=== PATIENT | female | born 1960 | race Caucasian/White ===

== ENCOUNTER 2017-02-20 12:32 | Emergency (ER) | payer MEDICAID ==
[~2017-02-20] VITALS: Ht 160 cm; Wt 62.4 kg
[~2017-02-20 12:32] MED LIST: IBUP800T23 PO
[2017-02-20 12:41] VITALS: BP 163/92; PULSE 89; RESP 16; TEMP 98.4; O2SAT 97
[2017-02-20] MEDS ORDERED: SODIUM CHLOR 0.9% 1000 ML INJ 1,000 ML IV ONE (12:59)
[2017-02-20 13:00] VITALS: BP 163/92; PULSE 88; RESP 20; TEMP 98.4; O2SAT 97
[2017-02-20] MEDS ORDERED: SODIUM CHLORIDE 0.9% FLUSH 10 ML FLUSH IVF PRN (13:00)
--- NOTE | 2017-02-20 13:06 | PD ---
HPI . Diarrhea Chief Complaint: Diarrhea Time Seen by Provider: 12:59 Travel History International Travel<30 days: No Contact w/Intl Traveler<30days: No History of Present Illness HPI This patient presents with a chief complaint of diarrhea. Onset was 3 months ago. She reports approximately 5 loose stools per day. She states that she is occasionally incontinent of stool during the nighttime. She reports some associated lower abdominal cramping and nausea. She reports decreased appetite. Despite this, she has only lost a couple of pounds. She has not been running any fever. She states that her sister visited her just prior to the onset of symptoms and that the sister had C. difficile. The patient is concerned that she has the same. She reports that she has not been on antibiotics in over a year. No exacerbating or relieving factors. PFSH Past Medical History Autoimmune Disease: Yes (FIBROMYALGIA) Diminished Hearing: No Tubal Ligation: Yes Past Surgical History Other Surgery: Yes (TUBAL) Social History Alcohol Use: No Tobacco Use: Yes (1 ppd) Substance Use: No Allergies-Medications (Allergen,Severity, Reaction): Coded Allergies: No Known Allergies (Unverified , 10/06/14) Reported Meds & Prescriptions Reported Meds & Active Scripts Active Reported Lortab (Hydrocodone-Acetaminophen) 5-325 Mg Tab 1 Tab PO Q6H PRN Tizanidine (Tizanidine HCl) 4 Mg Tab 4 Mg PO TID Gabapentin 800 Mg Tab 800 Mg PO TID Review of Systems Except as stated in HPI: all other systems reviewed are Neg General / Constitutional: Positive: Weight Loss (only a couple of pounds), No: Fever, Chills Gastrointestinal: Positive: Nausea, Diarrhea, Abdominal Pain, No: Vomiting Genitourinary: Positive: Dysuria Physical Exam Narrative GENERAL: Awake and alert and in no acute distress. SKIN: warm/dry. Good color and turgor. HEAD: Normocephalic. Atraumatic. EYES: Pupils equal and round. No scleral icterus. No injection or drainage. ENT: No nasal bleeding or discharge. Mucous membranes pink and moist. NECK: Trachea midline. Full range of motion without pain.. CARDIOVASCULAR: Regular rate and rhythm. Heart sounds are normal. RESPIRATORY: No accessory muscle use. Clear to auscultation. Breath sounds equal bilaterally. GASTROINTESTINAL: Abdomen soft. Nontender. Bowel sounds present. Nondistended. MUSCULOSKELETAL: No obvious deformities. NEUROLOGICAL: Awake and alert. No obvious cranial nerve deficits. Motor grossly within normal limits. Normal speech. PSYCHIATRIC: Appropriate mood and affect; insight and judgment normal. Data Data Last Documented VS Vital Signs Date Time Temp Pulse Resp B/P (MAP) Pulse Ox O2 Delivery O2 Flow Rate FiO2 02/20/17 13:00 98.4 88 20 163/92 (115) 97 02/20/17 12:41 Room Air Orders Orders Complete Blood Count With Diff (02/20/17 12:59) Comprehensive Metabolic Panel (02/20/17 12:59) Urinalysis - C+S If Indicated (02/20/17 12:59) Iv Access Insert/Monitor (02/20/17 12:59) Sodium Chlor 0.9% 1000 Ml Inj (Ns 1000 M (02/20/17 12:59) Sodium Chloride 0.9% Flush (Ns Flush) (02/20/17 13:00) C Diff Toxin Pcr (02/20/17 12:59) Enteric Path (Stool) (02/20/17 12:59) Labs Laboratory Tests Test 02/20/17 13:50 02/20/17 14:00 Urine Collection Type CLEAN CATCH Urine Color YELLOW Urine Turbidity CLEAR Urine pH 6.0 Urine Specific [place] 1.005 Urine Protein NEG mg/dL Urine Glucose (UA) NEG mg/dL Urine Ketones NEG mg/dL Urine Occult Blood TRACE Urine Nitrite NEG Urine Bilirubin NEG Urine Leukocyte Esterase TRACE Urine RBC 0-3 /hpf Urine WBC 3-5 /hpf Urine Squamous Epithelial Cells 0-5 /hpf Microscopic Urinalysis Comment CULT NOT INDICATED Urine Collection Time 13:50 White Blood Count 12.7 TH/MM3 Red Blood Count 4.82 MIL/MM3 Hemoglobin 14.0 GM/DL Hematocrit 42.3 % Mean Corpuscular Volume 87.9 FL Mean Corpuscular Hemoglobin 29.2 PG Mean Corpuscular Hemoglobin Concent 33.2 % Red Cell Distribution Width 13.6 % Platelet Count 193 TH/MM3 Mean Platelet Volume 11.4 FL Neutrophils (%) (Auto) 68.8 % Lymphocytes (%) (Auto) 25.7 % Monocytes (%) (Auto) 4.2 % Eosinophils (%) (Auto) 1.0 % Basophils (%) (Auto) 0.3 % Neutrophils # (Auto) 8.8 TH/MM3 Lymphocytes # (Auto) 3.3 TH/MM3 Monocytes # (Auto) 0.5 TH/MM3 Eosinophils # (Auto) 0.1 TH/MM3 Basophils # (Auto) 0.0 TH/MM3 CBC Comment DIFF FINAL Differential Comment Blood Urea Nitrogen 7 MG/DL Creatinine 0.84 MG/DL Random Glucose 100 MG/DL Total Protein 7.9 GM/DL Albumin 4.2 GM/DL Calcium Level 9.2 MG/DL Alkaline Phosphatase 85 U/L Aspartate Amino Transf (AST/SGOT) 10 U/L Alanine Aminotransferase (ALT/SGPT) 17 U/L Total Bilirubin 0.8 MG/DL Sodium Level 135 MEQ/L Potassium Level 3.4 MEQ/L Chloride Level 102 MEQ/L Carbon Dioxide Level 24.8 MEQ/L Anion Gap 8 MEQ/L Estimat Glomerular Filtration Rate 71 ML/MIN MDM Medical Decision Making Medical Screen Exam Complete: Yes Emergency Medical Condition: Yes Differential Diagnosis Differential diagnosis of diarrhea includes but is not limited to early enteritis, bacterial enteritis, antibiotic induced diarrhea, irritable bowel syndrome Narrative Course This patient presents with chief complaint of diarrhea 3 months. I will give her a fluid bolus. I have ordered labs including stool for C. difficile and culture for enteric pathogens. CBC & BMP Diagram 02/20/17 14:00 Total Protein 7.9, Albumin 4.2, Calcium Level 9.2, Alkaline Phosphatase 85, Aspartate Amino Transf (AST/SGOT) 10 L, Alanine Aminotransferase (ALT/SGPT) 17, Total Bilirubin 0.8 UA>>trace blood, trace LE, 3-5 WBCs I will treat her with Macrobid for 3 days. I will give her supplemental potassium. She has been here for 2 hours and has not stooled. Stool studies will be canceled. She is unlikely to have a significant pathogen since she has not produced stool for 2 hours. Diagnosis Primary Impression: Diarrhea Qualified Codes: R19.7 - Diarrhea, unspecified Additional Impressions: Urinary tract infection Qualified Codes: N30.00 - Acute cystitis without hematuria Hypokalemia Patient Instructions: Chronic Diarrhea (DC), General Instructions, Hypokalemia (DC), Urinary Tract Infection in Women (DC) Med/Other Pt SpecificInfo: Prescription(s) given Scripts Potassium Chloride ER (Potassium Chloride ER) 20 Meq Tab 20 MEQ PO BID for Electrolyte Replacement for 5 Days, #10 TAB 0 Refills Prov: Eve Reid MD 02/20/17 Nitrofurantoin Monohydrate Macrocrystals (Macrobid) 100 Mg Cap 100 MG PO BID for Infection for 3 Days, #6 CAP 0 Refills Prov: Eve Reid MD 02/20/17 Disposition: 01 DISCHARGE HOME Condition: Stable Eve Reid MD Feb 20, 2017 13:05
[2017-02-20] MEDS ORDERED: TIZA4TAB PO (13:31)
[2017-02-20] MEDS ORDERED: GABA800T PO (13:31)
[2017-02-20] MEDS ORDERED: HYDR-3533 PO (13:31)
[2017-02-20 14:11] LABS: BILIRUBIN, URINE NEG (NEG); GLUCOSE,URINE NEG (NEG); KETONE, URINE NEG (NEG); NITRITE,URINE NEG (NEG); URINE LEUKOCYTE ESTERASE TRACE (NEG)
[2017-02-20 14:13] LABS: BLOOD, URINE TRACE (NEG)
[2017-02-20 14:14] LABS: RBC, URINE 0-3 /hpf (0-3); SQUAMOUS EPITHELIAL CELL URINE 0-5 /hpf (0-5); URINE COLOR YELLOW (YELLW/STRAW)
[2017-02-20 14:18] LABS: AUTOMATED NEUTROPHIL # 8.8 TH/MM3 (1.8-7.7); BASOPHIL % 0.3 % (0.0-2.0); EOSINOPHIL # 0.1 TH/MM3 (0-0.4); HEMATOCRIT 42.3 % (35.0-46.0); LYMPH % 25.7 % (9.0-44.0); LYMPHOCYTE # 3.3 TH/MM3 (1.0-4.8); MEAN CELL VOLUME 87.9 FL (80.0-100.0); MEAN CORPUSCULAR HEMOGLOBIN 29.2 PG (27.0-34.0); MEAN CORPUSCULAR HGB CONC 33.2 % (32.0-36.0); MEAN PLATELET VOLUME 11.4 FL (7.0-11.0); MONO % 4.2 % (0.0-8.0); MONOCYTE # 0.5 TH/MM3 (0-0.9); NEUT % 68.8 % (16.0-70.0); PLATELET COUNT 193 TH/MM3 (150-450); RED BLOOD COUNT 4.82 MIL/MM3 (4.00-5.30); RED CELL DISTRIBUTION WIDTH 13.6 % (11.6-17.2); WHITE BLOOD COUNT 12.7 TH/MM3 (4.0-11.0)
[2017-02-20 14:25] LABS: CHLORIDE 102 MEQ/L (98-107); SODIUM (NA) 135 MEQ/L (136-145)
[2017-02-20 14:28] LABS: CALCIUM 9.2 MG/DL (8.5-10.1)
[2017-02-20 14:29] LABS: ALBUMIN 4.2 GM/DL (3.4-5.0); BICARBONATE 24.8 MEQ/L (21.0-32.0); BLOOD UREA NITROGEN 7 MG/DL (7-18); GLUCOSE,RANDOM 100 MG/DL (74-106)
[2017-02-20 14:32] LABS: ALT (GPT) 17 U/L (10-53); AST (GOT) 10 U/L (15-37); CREATININE 0.84 MG/DL (0.50-1.00); GLOMERULAR FILTRATION RATE 71 ML/MIN (>89)
[2017-02-20 14:33] LABS: TOTAL BILIRUBIN ADULT 0.8 MG/DL (0.2-1.0); TOTAL PROTEIN 7.9 GM/DL (6.4-8.2)
[2017-02-20 14:35] LABS: ALKALINE PHOSPHATASE 85 U/L (45-117)
[2017-02-20] MEDS ORDERED: POTA-163 PO (14:55)
[2017-02-20] MEDS ORDERED: MACR100C2 PO (14:55)
[2017-02-20 15:36] VITALS: BP 145/88
== END 2017-02-20 15:47 | disposition home or self-care (01) ==
LOC: PHED 12:32
DX: R19.7 Diarrhea, unspecified (principal); N30.00 Acute cystitis without hematuria; E87.6 Hypokalemia; R10.30 Lower abdominal pain, unspecified; R11.0 Nausea; F17.200 Nicotine dependence, unspecified, uncomplicated; Z87.39 Personal history of other diseases of the musculoskeletal system and connective tissue
CPT/HCPCS: 80053; 81001; 85025; 99283; J7030

== ENCOUNTER 2017-03-14 17:16 | Emergency (ER) | payer MEDICAID ==
[~2017-03-14] VITALS: Ht 160 cm; Wt 60.0 kg
[~2017-03-14 17:16] MED LIST changes: +GABA800T PO; +HYDR-3533 PO; -IBUP800T23 PO; +MACR100C2 PO; +POTA-163 PO; +TIZA4TAB PO
[2017-03-14 17:22] VITALS: BP 147/79; PULSE 75; RESP 16; TEMP 98.4; O2SAT 100
[2017-03-14 18:17] VITALS: BP 178/101; PULSE 69; RESP 22; O2SAT 100
[2017-03-14] MEDS ORDERED: SODIUM CHLOR 0.9% 1000 ML INJ 1,000 ML IV SCH (18:19)
[2017-03-14 18:21] VITALS: O2SAT 100
--- NOTE | 2017-03-14 18:24 | PD ---
HPI Chief Complaint: GI Complaint Time Seen by Provider: 18:09 Travel History International Travel<30 days: No Contact w/Intl Traveler<30days: No Traveled to known affect area: No History of Present Illness HPI 56-year-old female complains of abdominal pain and diarrhea. Patient states that the symptoms started about 4 months ago. Patient states that she has about 45 loose stool per day. Patient denies any blood or mucus in the stool. Patient states that she has intermittent abdominal cramping diffuse over the abdomen. Patient denies any pain radiation. Patient denies any fever chills. Patient denies any dysuria or frequency. Patient denies vaginal discharge or bleeding. Patient was seen in emergency room 3 months ago and had blood tests and UA done. Patient was diagnosed with diarrhea and UTI. Patient was given prescription for potassium and Macrobid. Patient has not seen any physician follow-up so far. Patient states that she had persistent diarrhea with intermittent abdominal cramping. PFSH Past Medical History Autoimmune Disease: Yes (FIBROMYALGIA) COPD: Yes Diminished Hearing: No Fibromyalgia: Yes ?: Not Tubal Ligation: Yes Past Surgical History Other Surgery: Yes (TUBAL) Social History Alcohol Use: No Tobacco Use: Yes (1 PPD) Substance Use: No Allergies-Medications (Allergen,Severity, Reaction): Coded Allergies: [place] Dust (Verified Allergy, Severe, 03/14/17) No Known Allergies (Unverified Adverse Reaction, Unknown, 03/14/17) Reported Meds & Prescriptions Reported Meds & Active Scripts Active Potassium Chloride ER (Potassium Chloride) 20 Meq Tab 20 Meq PO BID 5 Days Macrobid (Nitrofurantoin Monoh/Nitrofur Macro) 100 Mg Cap 100 Mg PO BID 3 Days Reported Lortab (Hydrocodone-Acetaminophen) 5-325 Mg Tab 1 Tab PO Q6H PRN Tizanidine (Tizanidine HCl) 4 Mg Tab 4 Mg PO TID Gabapentin 800 Mg Tab 800 Mg PO TID Review of Systems General / Constitutional: No: Fever Eyes: No: Visual changes HENT: No: Headaches Cardiovascular: No: Chest Pain or Discomfort Respiratory: No: Shortness of Breath Gastrointestinal: Positive: Diarrhea, Abdominal Pain Genitourinary: No: Dysuria Musculoskeletal: No: Pain Skin: No Rash Neurologic: No: Weakness Psychiatric: No: Depression Endocrine: No: Polydipsia Hematologic/Lymphatic: No: Easy Bruising Physical Exam Narrative GENERAL: Well-nourished, well-developed patient. SKIN: Focused skin assessment warm/dry. HEAD: Normocephalic. EYES: No scleral icterus. No injection or drainage. NECK: Supple, trachea midline. No JVD or lymphadenopathy. CARDIOVASCULAR: Regular rate and rhythm without murmurs, gallops, or rubs. RESPIRATORY: Breath sounds equal bilaterally. No accessory muscle use. GASTROINTESTINAL: Abdomen soft, nondistended. Patient has mild diffuse tenderness over the abdomen. No rebound tenderness. No mass. MUSCULOSKELETAL: No cyanosis, or edema. BACK: Nontender without obvious deformity. No CVA tenderness. Neurologic exam normal. Data Data Last Documented VS Vital Signs Date Time Temp Pulse Resp B/P (MAP) Pulse Ox O2 Delivery O2 Flow Rate FiO2 03/14/17 18:17 69 22 178/101 (126) 100 Room Air 03/14/17 17:22 98.4 Orders Orders Complete Blood Count With Diff (03/14/17 18:19) Comprehensive Metabolic Panel (03/14/17 18:19) Lipase (03/14/17 18:19) Urinalysis - C+S If Indicated (03/14/17 18:19) Ct Abd/Pel W Iv Contrast(Rout) (03/14/17 18:19) Iv Access Insert/Monitor (03/14/17 18:19) Ecg Monitoring (03/14/17 18:19) Oximetry (03/14/17 18:19) Sodium Chlor 0.9% 1000 Ml Inj (Ns 1000 M (03/14/17 18:19) Sodium Chloride 0.9% Flush (Ns Flush) (03/14/17 18:30) Famotidine Inj (Pepcid Inj) (03/14/17 18:30) MDM Medical Decision Making Medical Screen Exam Complete: Yes Emergency Medical Condition: Yes Differential Diagnosis Differential diagnosis including gastroenteritis, C. difficile colitis, colitis , electrolyte imbalance, dehydration. Narrative Course 56-year-old female with recurrent abdominal pain and diarrhea. Normal saline solution 1 L IV bolus. Wolfgang Kumar MD Mar 14, 2017 18:24
[2017-03-14] MEDS ORDERED: SODIUM CHLORIDE 0.9% FLUSH 10 ML FLUSH IV FLUSH PRN (18:30)
[2017-03-14] MEDS ORDERED: FAMOTIDINE 20 MG/2 ML VIAL IV PUSH ONE (18:30)
[2017-03-14 19:21] LABS: AUTOMATED NEUTROPHIL # 5.6 TH/MM3 (1.8-7.7); BASOPHIL % 0.3 % (0.0-2.0); EOSINOPHIL # 0.1 TH/MM3 (0-0.4); EOSINOPHIL % 0.6 % (0.0-4.0); HEMATOCRIT 38.1 % (35.0-46.0); LYMPH % 29.9 % (9.0-44.0); LYMPHOCYTE # 2.7 TH/MM3 (1.0-4.8); MEAN CELL VOLUME 88.8 FL (80.0-100.0); MEAN CORPUSCULAR HEMOGLOBIN 30.3 PG (27.0-34.0); MEAN CORPUSCULAR HGB CONC 34.2 % (32.0-36.0); MONO % 6.7 % (0.0-8.0); NEUT % 62.5 % (16.0-70.0); PLATELET COUNT 177 TH/MM3 (150-450); RED BLOOD COUNT 4.29 MIL/MM3 (4.00-5.30); RED CELL DISTRIBUTION WIDTH 13.3 % (11.6-17.2); WHITE BLOOD COUNT 8.9 TH/MM3 (4.0-11.0)
[2017-03-14 19:22] LABS: ANION GAP 6 MEQ/L (5-15); AST (GOT) 15 U/L (15-37); BICARBONATE 27.1 MEQ/L (21.0-32.0); BLOOD UREA NITROGEN 5 MG/DL (7-18); CHLORIDE 107 MEQ/L (98-107); GLOMERULAR FILTRATION RATE 86 ML/MIN (>89); POTASSIUM 3.1 MEQ/L (3.5-5.1); SODIUM (NA) 140 MEQ/L (136-145)
[2017-03-14 19:26] LABS: ALKALINE PHOSPHATASE 79 U/L (45-117); ALT (GPT) 16 U/L (10-53); TOTAL BILIRUBIN ADULT 0.4 MG/DL (0.2-1.0)
[2017-03-14 19:27] LABS: HEMO FLAGS AUTO DIFF
[2017-03-14 19:33] LABS: BLOOD, URINE NEG (NEG); GLUCOSE,URINE NEG (NEG); KETONE, URINE NEG (NEG); NITRITE,URINE NEG (NEG); URINE COLOR LIGHT-YELLOW (YELLW/STRAW)
[2017-03-14] MEDS ORDERED: IOHEXOL 350 MG/ML 10 ML VIAL (for RAD DIAG) IVCONTRAST ONE (19:34)
[2017-03-14 19:44] LABS: COMMENT (UR) CULT NOT INDICATED; CULTURE IF INDICATED CULT NOT INDICATED
[2017-03-14 19:45] LABS: BACTERIA, URINE RARE /hpf; RBC, URINE 0-3 /hpf (0-3); SQUAMOUS EPITHELIAL CELL URINE 0-5 /hpf (0-5); WBC, URINE 0-2 /hpf (0-5)
--- NOTE | 2017-03-14 19:47 | RADRPT ---
EXAM DATE/TIME: 03/14/2017 19:24 [facility] COMPARISON: No previous studies available for comparison. INDICATIONS : Abdominal pain and diarrhea X 4 months; patient states she fell yesterday due to weakness. IV CONTRAST: 70 cc Omnipaque 350 (iohexol) IV ORAL CONTRAST: No oral contrast ingested. RADIATION DOSE: 6.64 CTDIvol (mGy) MEDICAL HISTORY : Chronic obstructive pulmonary disease. SURGICAL HISTORY : Tubal ligation. ENCOUNTER: Initial ACUITY: 4 - 6 months PAIN SCALE: 8/10 LOCATION: abdomen TECHNIQUE: Volumetric scanning of the abdomen and pelvis was performed. Using automated exposure control and ad justment of the mA and/or kV according to patient size, radiation dose was kept as low as reasonably achievable to obtain optimal diagnostic quality images. DICOM format image data is available electro nically for review and comparison. FINDINGS: LOWER LUNGS: The visualized lower lungs are clear. LIVER: Homogeneous density without lesion. There is no dilation of the biliary tree. A round 3 mm calculus is seen in the martinez hepatis. This does not appear to be in the common bile duct but could potentiall y be in the cystic duct. No other definite stones. The gallbladder is not distended and there are no perceptible inflammatory changes.. SPLEEN: Normal size without lesion. PANCREAS: Within normal limits. KIDNEYS: Normal in size and shape. There is no mass, stone or hydronephrosis. ADRENAL GLANDS: Within normal limits. VASCULAR: There is atherosclerosis of the abdominal aorta. No aneurysm. BOWEL/MESENTERY: There is moderate diverticulosis of the sigmoid colon. No acute inflammatory changes are seen. No bow el obstruction.. There is no free intraperitoneal air or fluid. ABDOMINAL WALL: Within normal limits. RETROPERITONEUM: There is no lymphadenopathy. BLADDER: No wall thickening or mass. REPRODUCTIVE: Within normal limits. INGUINAL: There is no lymphadenopathy or hernia. MUSCULOSKELETAL: No acute bony abnormality demonstrated. CONCLUSION: 1. No obstruction or acute inflammatory changes. 2. Sigmoid colon diverticulosis but no diverticulitis. 3. Suspected tiny stone in the cystic duct but without evidence of obstruction or inflammatory change s. There is quite clearly no stone in the common bile duct. 4. Atherosclerosis is seen of the abdominal aorta. Devante Crawford MD on March 14, 2017 at 19:40 Board Certified Radiologist. This report was verified electronically.
[2017-03-14 20:09] LABS: KERATOCYTES OCC (NORMAL); PLATELET ESTIMATE SMEAR NORMAL (NORMAL); PLATELET MORPHOLOGY NORMAL (NORMAL)
[2017-03-14 20:12] LABS: SCAN/DIFF AUTO DIFF CONFIRMED
[2017-03-14] MEDS ORDERED: POTA10TA2 PO (20:30)
--- NOTE | 2017-03-14 20:32 | PD ---
Data Data Last Documented VS Vital Signs Date Time Temp Pulse Resp B/P (MAP) Pulse Ox O2 Delivery O2 Flow Rate FiO2 03/14/17 18:21 100 Room Air 03/14/17 18:17 69 22 03/14/17 17:22 98.4 Orders Orders Complete Blood Count With Diff (03/14/17 18:19) Comprehensive Metabolic Panel (03/14/17 18:19) Lipase (03/14/17 18:19) Urinalysis - C+S If Indicated (03/14/17 18:19) Ct Abd/Pel W Iv Contrast(Rout) (03/14/17 18:19) Iv Access Insert/Monitor (03/14/17 18:19) Ecg Monitoring (03/14/17 18:) Oximetry (03/14/17 18:) Sodium Chlor 0.9% 1000 Ml Inj (Ns 1000 M (03/14/17 18:19) Sodium Chloride 0.9% Flush (Ns Flush) (03/14/17 18:30) Famotidine Inj (Pepcid Inj) (03/14/17 18:30) Iohexol 350 Inj (Omnipaque 350 Inj) (03/14/17 19:34) Labs Laboratory Tests Test 03/14/17 18:25 White Blood Count 8.9 TH/MM3 Red Blood Count 4.29 MIL/MM3 Hemoglobin 13.0 GM/DL Hematocrit 38.1 % Mean Corpuscular Volume 88.8 FL Mean Corpuscular Hemoglobin 30.3 PG Mean Corpuscular Hemoglobin Concent 34.2 % Red Cell Distribution Width 13.3 % Platelet Count 177 TH/MM3 Mean Platelet Volume 10.9 FL Neutrophils (%) (Auto) 62.5 % Lymphocytes (%) (Auto) 29.9 % Monocytes (%) (Auto) 6.7 % Eosinophils (%) (Auto) 0.6 % Basophils (%) (Auto) 0.3 % Neutrophils # (Auto) 5.6 TH/MM3 Lymphocytes # (Auto) 2.7 TH/MM3 Monocytes # (Auto) 0.6 TH/MM3 Eosinophils # (Auto) 0.1 TH/MM3 Basophils # (Auto) 0.0 TH/MM3 CBC Comment AUTO DIFF Differential Comment AUTO DIFF CONFIRMED Platelet Estimate NORMAL Platelet Morphology Comment NORMAL Keratocytes OCC Urine Color LIGHT-YELLOW Urine Turbidity CLEAR Urine pH 6.0 Urine Specific [place] 1.004 Urine Protein NEG mg/dL Urine Glucose (UA) NEG mg/dL Urine Ketones NEG mg/dL Urine Occult Blood NEG Urine Nitrite NEG Urine Bilirubin NEG Urine Urobilinogen LESS THAN 2.0 MG/DL Urine Leukocyte Esterase NEG Urine RBC 0-3 /hpf Urine WBC 0-2 /hpf Urine Squamous Epithelial Cells 0-5 /hpf Urine Bacteria RARE /hpf Microscopic Urinalysis Comment CULT NOT INDICATED Blood Urea Nitrogen 5 MG/DL Creatinine 0.71 MG/DL Random Glucose 86 MG/DL Total Protein 6.8 GM/DL Albumin 3.7 GM/DL Calcium Level 8.7 MG/DL Alkaline Phosphatase 79 U/L Aspartate Amino Transf (AST/SGOT) 15 U/L Alanine Aminotransferase (ALT/SGPT) 16 U/L Total Bilirubin 0.4 MG/DL Sodium Level 140 MEQ/L Potassium Level 3.1 MEQ/L Chloride Level 107 MEQ/L Carbon Dioxide Level 27.1 MEQ/L Anion Gap 6 MEQ/L Estimat Glomerular Filtration Rate 86 ML/MIN Lipase 81 U/L MDM Medical Record Reviewed: Yes Supervised Visit with PERNELL: No Narrative Course Please refer to the outgoing provider note. The patient was reassessed at 8:20 PM and found to be resting comfortably. Results of workup discussed including mild hypokalemia as well as dietary interventions. We discussed lifestyle diet modification for chronic diarrhea as well as the need for follow-up with GI. Patient also has a cystic duct stone of indeterminate significance however given asymptomatic state with normal labs routine follow-up considered reasonable this point. The patient verbalizes understanding intent to follow up as discussed. Last Impressions Abdomen/Pelvis CT 03/14/171818 Signed Impressions: Service Date/Time: Tuesday, March 14, 2017 19:24 - CONCLUSION: 1. No obstruction or acute inflammatory changes. 2. Sigmoid colon diverticulosis but no diverticulitis. 3. Suspected tiny stone in the cystic duct but without evidence of obstruction or inflammatory changes. There is quite clearly no stone in the common bile duct. 4. Atherosclerosis is seen of the abdominal aorta. Devante Crawford MD CBC & BMP Diagram 03/14/17 18:25 Total Protein 6.8, Albumin 3.7, Calcium Level 8.7, Alkaline Phosphatase 79, Aspartate Amino Transf (AST/SGOT) 15, Alanine Aminotransferase (ALT/SGPT) 16, Total Bilirubin 0.4 Diagnosis Primary Impression: Cystic duct calculus Additional Impressions: Diarrhea Qualified Codes: R19.7 - Diarrhea, unspecified Hypokalemia Referrals: [facility] 2 days Additional Instruction: You have a choice when it comes to health care, and we are glad that you chose [facility]. Hopefully, we have met your expectations on today's visit. You are welcome to return to [facility] at any time, as we are committed to meeting the health care needs of our community. PLEASE BE SURE TO FOLLOW UP WITH [facility] WITHOUT DELAY. PLEASE CALL THEM THURSDAY MORNING TO SCHEDULE AN APPOINTMENT FOR CYSTIC DUCT STONE AND FOR EVALUATION OF FOUR MONTHS OF DIARRHEA. Med/Other Pt SpecificInfo: Prescription(s) given Scripts Potassium Chloride ER (Potassium Chloride ER) 10 Meq Tab 10 MEQ PO BID for Electrolyte Replacement for 7 Days, #14 TAB 0 Refills Prov: Cory Lopes MD 03/14/17 Disposition: 01 DISCHARGE HOME Cory Lopes MD Mar 14, 2017 20:32
[2017-03-14 21:12] VITALS: BP 168/84; PULSE 63; RESP 16; O2SAT 97
== END 2017-03-14 21:20 | disposition home or self-care (01) ==
LOC: NEPE 17:16
DX: K80.20 Calculus of gallbladder without cholecystitis without obstruction (principal); R19.7 Diarrhea, unspecified; E87.6 Hypokalemia; J44.9 Chronic obstructive pulmonary disease, unspecified; M79.7 Fibromyalgia; Z72.0 Tobacco use
CPT/HCPCS: 74177; 80053; 81001; 83690; 85025; 96374; 99285; J7030; Q9967

== ENCOUNTER 2017-05-12 18:34 | Emergency (ER) | payer MEDICAID ==
[~2017-05-12] VITALS: Ht 160 cm; Wt 62.0 kg
[~2017-05-12 18:34] MED LIST changes: -HYDR-3533 PO; -MACR100C2 PO; -POTA-163 PO; +POTA10TA2 PO
[2017-05-12 19:18] VITALS: BP 130/77; PULSE 74; RESP 16; TEMP 98.1; O2SAT 98
[2017-05-12] MEDS ORDERED: SODIUM CHLOR 0.9% 1000 ML INJ 1,000 ML IV SCH (19:33)
--- NOTE | 2017-05-12 19:36 | PD ---
HPI Chief Complaint: Flank/Kidney Pain Time Seen by Provider: 19:26 Travel History International Travel<30 days: No Contact w/Intl Traveler<30days: No Traveled to known affect area: No History of Present Illness HPI This patient was examined in the presence of a nurse. 56 old female presents for evaluation of chronic diarrhea as well as abdominal pain. She reports that she has had diarrhea for several months. She reports loose stools, between 2 and 10 times per day, nonbloody. She has also had intermittent right-sided abdominal pain during this time. Today she had an episode of right-sided abdominal pain which prompted evaluation. She describes it as a crampy right- sided pain that seems to be mainly in the periumbilical and right lower quadrant however sometimes she has pain in the right upper quadrant and the abdomen as well. Pain seems to come and go with no obvious aggravating or alleviating factors. She is endorsing some right-sided back pain as well. The patient was experiencing similar pains when she was evaluated at [facility] on March 14. She had a CT of the abdomen and pelvis which revealed no acute abnormalities, sigmoid colon diverticulosis with no diverticulitis as well as a suspected tiny stone in the cystic duct well without evidence of obstruction or inflammatory changes. No stone in the common bile duct. The patient was advised to follow-up with a cement finisher helper but she reports that she's been unable to do so secondary to financial and transportation concerns. She reports that recently has been attempting to establish care with a primary care physician but does not have a appointment for several weeks. The long-standing symptoms are making her quite anxious. No other complaints at this time. PFSH Past Medical History Autoimmune Disease: Yes (FIBROMYALGIA) COPD: Yes Diminished Hearing: No Fibromyalgia: Yes Tubal Ligation: Yes Past Surgical History Other Surgery: Yes (TUBAL) Social History Alcohol Use: No Tobacco Use: Yes (1 PPD) Substance Use: No Allergies-Medications (Allergen,Severity, Reaction): Coded Allergies: [place] Dust (Verified Allergy, Severe, 05/12/17) Reported Meds & Prescriptions Reported Meds & Active Scripts Active Flagyl (Metronidazole) 500 Mg Tab 500 Mg PO TID 10 Days Potassium Chloride ER (Potassium Chloride) 10 Meq Tab 10 Meq PO BID 7 Days Reported Trazodone (Trazodone HCl) 100 Mg Tablet 100 Mg PO HS Tramadol (Tramadol HCl) 50 Mg Tab 100 Mg PO Q6H PRN Tizanidine (Tizanidine HCl) 4 Mg Tab 4 Mg PO TID Gabapentin 800 Mg Tab 800 Mg PO TID Review of Systems Except as stated in HPI: all other systems reviewed are Neg Physical Exam Narrative GENERAL: This is an anxious female who is answering questions appropriately SKIN: Warm and dry. HEAD: Atraumatic. Normocephalic. EYES: Pupils equal and round. No scleral icterus. No injection or drainage. ENT: No nasal bleeding or discharge. Mucous membranes pink and moist. NECK: Trachea midline. No JVD. CARDIOVASCULAR: Regular rate and rhythm. No murmur appreciated. RESPIRATORY: No accessory muscle use. Clear to auscultation. Breath sounds equal bilaterally. GASTROINTESTINAL: Abdomen soft, there is mild right periumbilical and right lower quadrant tenderness without guarding. There is no tenderness to palpation the right upper quadrant. There is no CVA tenderness. MUSCULOSKELETAL: No obvious deformities. No clubbing. No cyanosis. No edema. NEUROLOGICAL: Awake and alert. No obvious cranial nerve deficits. Motor grossly within normal limits. Normal speech. PSYCHIATRIC: Appropriate mood and affect; insight and judgment normal. Data Data Last Documented VS Vital Signs Date Time Temp Pulse Resp B/P (MAP) Pulse Ox O2 Delivery O2 Flow Rate FiO2 05/12/17:18 98.1 74 16 130/77 (94) 98 Orders Orders Complete Blood Count With Diff (05/12/17 19:33) Comprehensive Metabolic Panel (05/12/17 19:33) Lipase (05/12/17 19:33) Urinalysis - C+S If Indicated (05/12/17 19:33) Ct Abd/Pel W Iv Contrast(Rout) (05/12/17 19:33) Iv Access Insert/Monitor (05/12/17 19:33) Ondansetron Inj (Zofran Inj) (05/12/17 19:45) Sodium Chlor 0.9% 1000 Ml Inj (Ns 1000 M (05/12/17 19:33) C Diff Toxin Pcr (05/12/17 19:33) Enteric Path (Stool) (05/12/17 19:33) Iohexol 350 Inj (Omnipaque 350 Inj) (05/12/17 21:31) Ed Discharge Order (1/16/18 22:07) Labs Laboratory Tests Test 05/12/17 19:46 05/12/17 19:50 05/12/17 20:40 Stool C. difficile Toxin (PCR) NEGATIVE Stl C. difficile Toxin Epiderm 027 PRESUMPTIVE NEGATIVE White Blood Count 11.4 TH/MM3 Red Blood Count 4.64 MIL/MM3 Hemoglobin 13.2 GM/DL Hematocrit 40.4 % Mean Corpuscular Volume 87.0 FL Mean Corpuscular Hemoglobin 28.5 PG Mean Corpuscular Hemoglobin Concent 32.7 % Red Cell Distribution Width 13.4 % Platelet Count 212 TH/MM3 Mean Platelet Volume 10.2 FL Neutrophils (%) (Auto) 53.4 % Lymphocytes (%) (Auto) 37.3 % Monocytes (%) (Auto) 5.7 % Eosinophils (%) (Auto) 2.9 % Basophils (%) (Auto) 0.7 % Neutrophils # (Auto) 6.0 TH/MM3 Lymphocytes # (Auto) 4.3 TH/MM3 Monocytes # (Auto) 0.7 TH/MM3 Eosinophils # (Auto) 0.3 TH/MM3 Basophils # (Auto) 0.1 TH/MM3 CBC Comment DIFF FINAL Differential Comment Blood Urea Nitrogen 7 MG/DL Creatinine 0.80 MG/DL Random Glucose 79 MG/DL Total Protein 7.2 GM/DL Albumin 3.7 GM/DL Calcium Level 9.0 MG/DL Alkaline Phosphatase 92 U/L Aspartate Amino Transf (AST/SGOT) 21 U/L Alanine Aminotransferase (ALT/SGPT) 24 U/L Total Bilirubin 0.4 MG/DL Sodium Level 136 MEQ/L Potassium Level 3.9 MEQ/L Chloride Level 104 MEQ/L Carbon Dioxide Level 24.8 MEQ/L Anion Gap 7 MEQ/L Estimat Glomerular Filtration Rate 75 ML/MIN Lipase 84 U/L Urine Color YELLOW Urine Turbidity CLEAR Urine pH 6.0 Urine Specific [place] 1.004 Urine Protein NEG mg/dL Urine Glucose (UA) NEG mg/dL Urine Ketones NEG mg/dL Urine Occult Blood NEG Urine Nitrite NEG Urine Bilirubin NEG Urine Leukocyte Esterase NEG Urine WBC 0-2 /hpf Urine Squamous Epithelial Cells 0-5 /hpf Microscopic Urinalysis Comment CULT NOT INDICATED MDM Medical Decision Making Medical Screen Exam Complete: Yes Emergency Medical Condition: Yes Medical Record Reviewed: Yes Differential Diagnosis Irritable bowel syndrome, colitis, diverticulitis, appendicitis, biliary colic, ureteral stone Narrative Course 56-year-old female who has been experiencing nonbloody diarrhea for several months, intermittent right-sided abdominal pain, worse today. On examination she has primarily tenderness to palpation in the right periumbilical right lower quadrant with minimal pain in the right upper quadrant of the abdomen. She is concerned about the possibility of C. difficile as her relative was experiencing "explosive diarrhea" in December 2016 and that is when her symptoms started. She does not know if her relative ever sought out medical treatment for this issue. She was also concerned about CT imaging in February which revealed a possible tiny cystic duct stone. Given the chronicity of her diarrhea, C. difficile is highly unlikely however the patient makes a stool sample this will be sent for stool culture and C. difficile PCR. Plan today is for basic lab work, urinalysis, CT of the abdomen and pelvis. She will be given IV fluids and Zofran. Lab work has been reviewed. CBC reveals a WBC count of 11.4 otherwise unremarkable, CMP unremarkable, urinalysis and C. difficile PCR currently pending, CT abdomen and pelvis pending. The patient was signed out to my attending at the end of my shift for follow-up on these results. Scripts Metronidazole (Flagyl) 500 Mg Tab 500 MG PO TID for Infection for 10 Days, TAB 0 Refills Prov: Thee Brothers MD 05/12/17 Floyd Warren May 12, 2017 19:36
[2017-05-12] MEDS ORDERED: TRAM50TA PO (19:39)
[2017-05-12] MEDS ORDERED: TRAZ100T10 PO (19:39)
[2017-05-12] MEDS ORDERED: ONDANSETRON HCL 4 MG/2 ML VIAL IVP ONE (19:45)
[2017-05-12 19:59] LABS: BASOPHIL # 0.1 TH/MM3 (0-0.2); BASOPHIL % 0.7 % (0.0-2.0); EOSINOPHIL # 0.3 TH/MM3 (0-0.4); EOSINOPHIL % 2.9 % (0.0-4.0); HEMATOCRIT 40.4 % (35.0-46.0); HEMOGLOBIN 13.2 GM/DL (11.6-15.3); LYMPH % 37.3 % (9.0-44.0); LYMPHOCYTE # 4.3 TH/MM3 (1.0-4.8); MEAN CORPUSCULAR HEMOGLOBIN 28.5 PG (27.0-34.0); MEAN CORPUSCULAR HGB CONC 32.7 % (32.0-36.0); MEAN PLATELET VOLUME 10.2 FL (7.0-11.0); MONO % 5.7 % (0.0-8.0); MONOCYTE # 0.7 TH/MM3 (0-0.9); NEUT % 53.4 % (16.0-70.0); PLATELET COUNT 212 TH/MM3 (150-450); RED BLOOD COUNT 4.64 MIL/MM3 (4.00-5.30); RED CELL DISTRIBUTION WIDTH 13.4 % (11.6-17.2); WHITE BLOOD COUNT 11.4 TH/MM3 (4.0-11.0)
[2017-05-12 20:13] LABS: CHLORIDE 104 MEQ/L (98-107); SODIUM (NA) 136 MEQ/L (136-145)
[2017-05-12 20:17] LABS: ALBUMIN 3.7 GM/DL (3.4-5.0); BICARBONATE 24.8 MEQ/L (21.0-32.0); BLOOD UREA NITROGEN 7 MG/DL (7-18); GLUCOSE,RANDOM 79 MG/DL (74-106); LIPASE 84 U/L (73-393)
[2017-05-12 20:20] LABS: ALT (GPT) 24 U/L (10-53); AST (GOT) 21 U/L (15-37); GLOMERULAR FILTRATION RATE 75 ML/MIN (>89)
[2017-05-12 20:22] LABS: TOTAL BILIRUBIN ADULT 0.4 MG/DL (0.2-1.0); TOTAL PROTEIN 7.2 GM/DL (6.4-8.2)
[2017-05-12 20:23] LABS: ALKALINE PHOSPHATASE 92 U/L (45-117)
--- NOTE | 2017-05-12 20:46 | PD ---
Physical Exam Date Seen by Provider: May 12, 2017 Time Seen by Provider: 20:44 Narrative The patient is a 56-year-old female who is initially evaluated by the mid-level provider. Please refer to initial history, physical, diagnostic evaluation, and treatment modality plan. The patient was signed out at 9 PM laboratory evaluation and CT of the abdomen and pelvis pending. Data Data Last Documented VS Vital Signs Date Time Temp Pulse Resp B/P (MAP) Pulse Ox O2 Delivery O2 Flow Rate FiO2 05/12/17 19:18 98.1 74 16 130/77 (94) 98 Orders Orders Complete Blood Count With Diff (05/12/17 19:33) Comprehensive Metabolic Panel (05/12/17 19:33) Lipase (05/12/17 19:33) Urinalysis - C+S If Indicated (05/12/17 19:33) Ct Abd/Pel W Iv Contrast(Rout) (05/12/17 19:33) Iv Access Insert/Monitor (05/12/17 19:33) Ondansetron Inj (Zofran Inj) (05/12/17 19:45) Sodium Chlor 0.9% 1000 Ml Inj (Ns 1000 M (05/12/17 19:33) C Diff Toxin Pcr (05/12/17 19:33) Enteric Path (Stool) (05/12/17 19:33) Iohexol 350 Inj (Omnipaque 350 Inj) (05/12/17 21:31) Labs Laboratory Tests Test 05/12/17 19:46 05/12/17 19:50 05/12/17 20:40 White Blood Count 11.4 TH/MM3 Red Blood Count 4.64 MIL/MM3 Hemoglobin 13.2 GM/DL Hematocrit 40.4 % Mean Corpuscular Volume 87.0 FL Mean Corpuscular Hemoglobin 28.5 PG Mean Corpuscular Hemoglobin Concent 32.7 % Red Cell Distribution Width 13.4 % Platelet Count 212 TH/MM3 Mean Platelet Volume 10.2 FL Neutrophils (%) (Auto) 53.4 % Lymphocytes (%) (Auto) 37.3 % Monocytes (%) (Auto) 5.7 % Eosinophils (%) (Auto) 2.9 % Basophils (%) (Auto) 0.7 % Neutrophils # (Auto) 6.0 TH/MM3 Lymphocytes # (Auto) 4.3 TH/MM3 Monocytes # (Auto) 0.7 TH/MM3 Eosinophils # (Auto) 0.3 TH/MM3 Basophils # (Auto) 0.1 TH/MM3 CBC Comment DIFF FINAL Differential Comment Blood Urea Nitrogen 7 MG/DL Creatinine 0.80 MG/DL Random Glucose 79 MG/DL Total Protein 7.2 GM/DL Albumin 3.7 GM/DL Calcium Level 9.0 MG/DL Alkaline Phosphatase 92 U/L Aspartate Amino Transf (AST/SGOT) 21 U/L Alanine Aminotransferase (ALT/SGPT) 24 U/L Total Bilirubin 0.4 MG/DL Sodium Level 136 MEQ/L Potassium Level 3.9 MEQ/L Chloride Level 104 MEQ/L Carbon Dioxide Level 24.8 MEQ/L Anion Gap 7 MEQ/L Estimat Glomerular Filtration Rate 75 ML/MIN Lipase 84 U/L Urine Color YELLOW Urine Turbidity CLEAR Urine pH 6.0 Urine Specific [place] 1.004 Urine Protein NEG mg/dL Urine Glucose (UA) NEG mg/dL Urine Ketones NEG mg/dL Urine Occult Blood NEG Urine Nitrite NEG Urine Bilirubin NEG Urine Leukocyte Esterase NEG Urine WBC 0-2 /hpf Urine Squamous Epithelial Cells 0-5 /hpf Microscopic Urinalysis Comment CULT NOT INDICATED [facility] Medical Record Reviewed: Yes Supervised Visit with PERNELL: Yes Interpretation(s) Laboratory Tests Test 05/12/17 19:46 05/12/17 19:50 05/12/17 20:40 White Blood Count 11.4 TH/MM3 Red Blood Count 4.64 MIL/MM3 Hemoglobin 13.2 GM/DL Hematocrit 40.4 % Mean Corpuscular Volume 87.0 FL Mean Corpuscular Hemoglobin 28.5 PG Mean Corpuscular Hemoglobin Concent 32.7 % Red Cell Distribution Width 13.4 % Platelet Count 212 TH/MM3 Mean Platelet Volume 10.2 FL Neutrophils (%) (Auto) 53.4 % Lymphocytes (%) (Auto) 37.3 % Monocytes (%) (Auto) 5.7 % Eosinophils (%) (Auto) 2.9 % Basophils (%) (Auto) 0.7 % Neutrophils # (Auto) 6.0 TH/MM3 Lymphocytes # (Auto) 4.3 TH/MM3 Monocytes # (Auto) 0.7 TH/MM3 Eosinophils # (Auto) 0.3 TH/MM3 Basophils # (Auto) 0.1 TH/MM3 CBC Comment DIFF FINAL Differential Comment Blood Urea Nitrogen 7 MG/DL Creatinine 0.80 MG/DL Random Glucose 79 MG/DL Total Protein 7.2 GM/DL Albumin 3.7 GM/DL Calcium Level 9.0 MG/DL Alkaline Phosphatase 92 U/L Aspartate Amino Transf (AST/SGOT) 21 U/L Alanine Aminotransferase (ALT/SGPT) 24 U/L Total Bilirubin 0.4 MG/DL Sodium Level 136 MEQ/L Potassium Level 3.9 MEQ/L Chloride Level 104 MEQ/L Carbon Dioxide Level 24.8 MEQ/L Anion Gap 7 MEQ/L Estimat Glomerular Filtration Rate 75 ML/MIN Lipase 84 U/L Urine Color YELLOW Urine Turbidity CLEAR Urine pH 6.0 Urine Specific [place] 1.004 Urine Protein NEG mg/dL Urine Glucose (UA) NEG mg/dL Urine Ketones NEG mg/dL Urine Occult Blood NEG Urine Nitrite NEG Urine Bilirubin NEG Urine Leukocyte Esterase NEG Urine WBC 0-2 /hpf Urine Squamous Epithelial Cells 0-5 /hpf Microscopic Urinalysis Comment CULT NOT INDICATED CT the abdomen and pelvis reveals no acute disease. There is a 4 mm calcification projecting just anterior to the IVC approach in the martinez hepatis , this is posterior to the common bile duct and pancreatic head. This is not felt to relate to a stone within the biliary system but rather a phlebolith. This is unchanged from the prior study. Differential Diagnosis Differential diagnosis includes chronic diarrhea, chronic pancreatitis, retained biliary stone, diverticulitis, irritable bowel syndrome, inflammatory bowel disease, Crohn's disease, ulcerative colitis, colitis, enteritis, dehydration, which led abnormality. Narrative Course I, Dr. Brothers, have reviewed the advance practice practitioner's documentation and am in agreement, met with the patient face to face, made the diagnosis, and the medical decision making was done by me. *My assessment and Findings: The patient is a 56-year-old female was initially evaluated by the mid-level provider, JHOAN De Luna. Please refer to the initial history, physical, diagnostic evaluation, and treatment modality plan. The patient was signed out at 9 PM with laboratory evaluation and CT of the abdomen and pelvis pending. The patient's UA is unremarkable. White count is minimally elevated 11.4. LFTs are unremarkable. CT the abdomen and pelvis reveals no acute disease, the questionable cystic stone that was seen on previous CAT scan appears to be a 4 mm calcification that is a phlebolith and his posterior to the common bile duct and pancreatic head, it is felt not related to a stone within the biliary system. The C. difficile is pending, I will write the patient Flagyl 500 mg 3 times a day for 10 days and we will call her later with the results. Diagnosis Primary Impression: Chronic diarrhea Patient Instructions: General Instructions Additional Instruction: Please provide a patient a copy of her lab results and CT results at discharge. Medications as directed if C. difficile is positive. Follow-up with gastroenterology and her primary physician. Med/Other Pt SpecificInfo: Prescription(s) given Scripts Metronidazole (Flagyl) 500 Mg Tab 500 MG PO TID for Infection for 10 Days, TAB 0 Refills Prov: Thee Brothers MD 05/12/17 Disposition: 01 DISCHARGE HOME Condition: Stable Thee Brothers MD May 12, 2017 20:46
[2017-05-12 20:53] LABS: BILIRUBIN, URINE NEG (NEG); BLOOD, URINE NEG (NEG); GLUCOSE,URINE NEG (NEG); KETONE, URINE NEG (NEG); NITRITE,URINE NEG (NEG); URINE LEUKOCYTE ESTERASE NEG (NEG)
[2017-05-12 21:03] LABS: URINE COLOR YELLOW (YELLW/STRAW)
[2017-05-12 21:04] LABS: SQUAMOUS EPITHELIAL CELL URINE 0-5 /hpf (0-5); WBC, URINE 0-2 /hpf (0-5)
[2017-05-12] MEDS ORDERED: IOHEXOL 350 MG/ML 10 ML VIAL (for RAD DIAG) IVCONTRAST ONE (21:31)
--- NOTE | 2017-05-12 21:44 | RADRPT ---
EXAM DATE/TIME: 05/12/2017 21:20 [facility] COMPARISON: CT ABDOMEN & PELVIS W CONTRAST, March 14, 2017, 19:24. INDICATIONS : Right flank pain. IV CONTRAST: 100 cc Omnipaque 350 (iohexol) IV ORAL CONTRAST: No oral contrast ingested. RADIATION DOSE: 6.71 CTDIvol (mGy) MEDICAL HISTORY : Chronic obstructive pulmonary disease. SURGICAL HISTORY : Tubal ligation. ENCOUNTER: Initial ACUITY: 1 day PAIN SCALE: 10/10 LOCATION: Right flank TECHNIQUE: Volumetric scanning of the abdomen and pelvis was performed. Using automated exposure control and ad justment of the mA and/or kV according to patient size, radiation dose was kept as low as reasonably achievable to obtain optimal diagnostic quality images. DICOM format image data is available electro nically for review and comparison. FINDINGS: LOWER LUNGS: The visualized lower lungs are clear. LIVER: Homogeneous density without lesion. There is no dilation of the biliary tree. No calcified gallston es. There is a 4 mm calcification projecting just anterior to the IVC approach in the martinez hepatis. This is posterior to the common bile duct and pancreatic head. This is not felt to relate to a stone within the biliary system but rather a phlebolith. This is unchanged from the prior study. SPLEEN: Normal size without lesion. PANCREAS: Within normal limits. KIDNEYS: Normal in size and shape. lobulation noted involving both kidneys. There is no mass, stone or h ydronephrosis. ADRENAL GLANDS: Within normal limits. VASCULAR: There is no aortic aneurysm. BOWEL/MESENTERY: The stomach, small bowel, and colon demonstrate no acute abnormality. There is no free intraperitone al air or fluid. A few scattered sigmoid diverticula without acute inflammation. ABDOMINAL WALL: Within normal limits. RETROPERITONEUM: There is no lymphadenopathy. BLADDER: No wall thickening or mass. REPRODUCTIVE: Within normal limits. INGUINAL: There is no lymphadenopathy or hernia. MUSCULOSKELETAL: Within normal limits for patient age. CONCLUSION: No acute disease. Gordon Goddard Jr., MD on May 12, 2017 at 21:36 Board Certified Radiologist. This report was verified electronically.
[2017-05-12] MEDS ORDERED: METR-1 PO (21:56)
== END 2017-05-12 22:09 | disposition home or self-care (01) ==
LOC: PHEFT 18:34
DX: K52.9 Noninfective gastroenteritis and colitis, unspecified (principal); M79.7 Fibromyalgia; J44.9 Chronic obstructive pulmonary disease, unspecified; F17.210 Nicotine dependence, cigarettes, uncomplicated
CPT/HCPCS: 74177; 80053; 81001; 83690; 85025; 87493; 87506; 96361; 96374; 99284; J2405; J7030; Q9967